=== PATIENT | male | born 1975 | race Caucasian/White ===

== ENCOUNTER 2022-08-09 10:51 | Emergency (ER) | payer MEDICAID ==
[~2022-08-09] VITALS: Ht 180.3 cm; Wt 81.7 kg
[2022-08-11] MEDS ORDERED: ZYPREXA ZYDIS10 MG PO (12:36)
== END 2022-08-11 12:49 | disposition home or self-care (01) ==
LOC: ED 10:51
DX: Z88.8 Allergy status to other drugs, medicaments and biological substances (principal); F29 Unspecified psychosis not due to a substance or known physiological condition; F15.10 Other stimulant abuse, uncomplicated; Z20.822 Contact with and (suspected) exposure to COVID-19
CPT/HCPCS: 36415; 80053; 81003; 84443; 85025; 87502; 96372; 99283; A9270; A9270-GY; G0480; J2060; U0003